=== PATIENT | male | born 1955 | race Asian ===

== ENCOUNTER 2023-05-24 09:45 | Day surgery (SDC) | payer OTHER ==
[~2023-05-24] VITALS: Ht 160 cm; Wt 56.7 kg
[~2023-05-24 09:45] MED LIST: THEM PO
[2023-05-24] MEDS ORDERED: LIDOCAINE 2% 100 MG/5 ML UJET TP ONE ×3 (12:34→13:50)
[2023-05-24] MEDS ORDERED: fentaNYL citrate 0.05 MG/ML VIAL ONE (12:34)
[2023-05-24] MEDS ORDERED: fentaNYL citrate 0.05 MG/ML VIAL IVP ONE ×2 (13:50)
== END 2023-05-24 13:44 | disposition home or self-care (01) ==
LOC: MDS 09:45 → MMU 09:47 → MDS 13:44
PROVIDERS: ATTEND Internal Medicine Gastroenterology
DX: Z12.11 Encounter for screening for malignant neoplasm of colon (principal); Z88.0 Allergy status to penicillin; Z90.49 Acquired absence of other specified parts of digestive tract
CPT/HCPCS: 45378; J3010